=== PATIENT | female | born 1950 | race Caucasian/White ===

== ENCOUNTER 2022-07-08 14:52 | Inpatient (IN) ==
[2022-07-08] MEDS ORDERED: ceFAZolin 1,000 MG in 0.9 % Sodium Chloride Mini Bag 100 ML IVPB ONE (16:40)
[2022-07-08 16:53] LABS: Basophils # 0.1 K/mcL (0.0-0.2); Basophils % 0.8 %; Eosinophils # 0.1 K/mcL (0.0-0.6); Eosinophils % 1.8 %; Hematocrit 42.4 % (35.3-44.9); Hemoglobin 13.7 g/dL (11.5-15.4); Immature Granulocytes % 0.7 % (0-4); Lymphocytes # 1.4 K/mcL (0.6-4.6); Lymphocytes % 18.7 %; Mean Corpuscular HGB Conc 32.3 g/dL (31.6-35.5); Mean Corpuscular Hemoglobin 27.3 pg (28.0-33.3); Mean Corpuscular Volume 84.6 fL (83.0-100.0); Mean Platelet Volume 9.8 fL (9.4-12.4); Monocytes # 0.8 K/mcL (0.0-1.3); Monocytes % 10.3 %; Platelet Count 199 K/mcL (140-400); Red Blood Count 5.01 M/mcL (3.82-4.97); Red Cell Distribution Width 14.6 % (11.5-14.5); Segmented Neutrophils % 67.7 %; White Blood Count 7.4 K/mcL (4.3-11.1)
[2022-07-08 17:01] LABS: INR 1.1; Prothrombin Time 12.8 Seconds (9.4-12.1)
[2022-07-08 17:02] LABS: Alanine Aminotransferase 9 Units/L (7-52); Albumin 3.7 g/dL (3.5-5.7); Albumin/Globulin Ratio 1.4 (1.1-2.2); Alkaline Phosphatase 85 Units/L (34-104); Aspartate Amino Transferase 8 Units/L (13-39); BUN/Creatinine Ratio 12 (6-26); Bilirubin,Total 0.4 mg/dL (0.3-1.0); Blood Urea Nitrogen 10 mg/dL (8-23); Calcium 9.2 mg/dL (8.6-10.3); Carbon Dioxide 27 mEq/L (23-29); Chloride 97 mEq/L (98-107); Globulin 2.7 g/dL (2.4-3.5); Glucose 185 mg/dL (70-105); Magnesium 1.8 mg/dL (1.6-2.6); Osmolality,Calculated 274 (280-300); Potassium 4.3 mEq/L (3.5-5.1); Sodium 130 mEq/L (136-145); Total Protein 6.4 g/dL (6.4-8.9)
[2022-07-08 17:04] LABS: Activated Partial Thrombo Time 40.1 Seconds (26.0-36.0)
[2022-07-08 17:12] LABS: Troponin I < 0.03 ng/mL (< 0.04)
[2022-07-08 17:26] LABS: Thyroid Stimulating Hormone 4.686 mcIU/mL (0.340-5.600)
[2022-07-08] MEDS ORDERED: Acetaminophen 325 MG TABLET PO PRN (18:33)
[2022-07-08] MEDS ORDERED: Naloxone 0.4 MG/ML INJ IVP PRN (18:33)
[2022-07-08] MEDS ORDERED: Ondansetron 4 MG/2 ML VIAL IVP PRN (18:33)
[2022-07-08] MEDS ORDERED: Ondansetron ODT 4 MG TAB.RAPDIS PO PRN (18:36)
[2022-07-08] MEDS: Cefepime HCl 1,000 MG in 0.9 % Sodium Chloride Mini Bag 100 ML IVPB SCH (21:19)
[2022-07-08] MEDS: Apixaban 5 MG TABLET PO SCH (21:24)
[2022-07-08] MEDS: Topiramate 25 MG TABLET PO SCH (21:24)
[2022-07-08] MEDS: Gabapentin 100 MG CAPSULE PO SCH (21:24)
[2022-07-08] MEDS: Mirtazapine 15 MG TABLET PO SCH (21:25)
[2022-07-08] MEDS: Metoprolol 100 MG TABLET PO SCH (21:26)
[2022-07-09 05:07] LABS: Hematocrit 41.5 % (35.3-44.9); Hemoglobin 13.2 g/dL (11.5-15.4); Mean Corpuscular HGB Conc 31.8 g/dL (31.6-35.5); Mean Corpuscular Hemoglobin 27.3 pg (28.0-33.3); Mean Corpuscular Volume 85.9 fL (83.0-100.0); Mean Platelet Volume 9.7 fL (9.4-12.4); Platelet Count 201 K/mcL (140-400); Red Blood Count 4.83 M/mcL (3.82-4.97); Red Cell Distribution Width 14.8 % (11.5-14.5); White Blood Count 7.4 K/mcL (4.3-11.1)
[2022-07-09 05:22] LABS: BUN/Creatinine Ratio 13 (6-26); Blood Urea Nitrogen 9 mg/dL (8-23); Calcium 9.2 mg/dL (8.6-10.3); Carbon Dioxide 26 mEq/L (23-29); Chloride 103 mEq/L (98-107); Chol/HDL Ratio 3.5 (0-4.9); Cholesterol 110 mg/dL (< 200); Glucose 155 mg/dL (70-105); HDL Cholesterol 31 mg/dL (40-59); LDL Cholesterol,Calculated 48 mg/dL (< 100); Osmolality,Calculated 278 (280-300); Potassium 4.4 mEq/L (3.5-5.1); Sodium 133 mEq/L (136-145); Triglycerides 155 mg/dL (< 150)
[2022-07-09] MEDS: Cefepime HCl 1,000 MG in 0.9 % Sodium Chloride Mini Bag 100 ML IVPB SCH ×2 (06:39→17:58)
[2022-07-09] MEDS ORDERED: Vancomycin 1,500 MG/265 ML IV.SOLN IVPB SCH (09:00)
[2022-07-09] MEDS: Cholecalciferol (D-3) 1,000 UNIT (25MCG) TABLET PO SCH (09:44)
[2022-07-09] MEDS: Topiramate 25 MG TABLET PO SCH ×2 (09:44→22:14)
[2022-07-09] MEDS: Metoprolol 100 MG TABLET PO SCH ×2 (09:44→22:14)
[2022-07-09] MEDS: Furosemide 40 MG TABLET PO SCH (09:45)
[2022-07-09] MEDS: Gabapentin 100 MG CAPSULE PO SCH ×3 (09:45→22:15)
[2022-07-09] MEDS: Apixaban 5 MG TABLET PO SCH ×2 (09:45→22:15)
[2022-07-09] MEDS: Ipratropium/Albuterol Neb 3 ML IH SCH ×3 (11:30→20:40)
[2022-07-09] MEDS: *HR* HYDROcodone/Acet 5/325 mg TABLET PO PRN ×2 (11:56→22:16)
[2022-07-09] MEDS: MethylPREDNISolone 40 MG/ML VIAL IVP SCH ×2 (15:52→22:16)
[2022-07-09] MEDS ORDERED: Saline Nasal Spray 44 ML BOTTLE NS PRN (16:57)
[2022-07-09] MEDS: Doxycycline 100 MG in 0.9 % Sodium Chloride Mini Bag 100 ML IVPB SCH (17:57)
[2022-07-09] MEDS: Mirtazapine 15 MG TABLET PO SCH (22:15)
[2022-07-10] MEDS: Ipratropium/Albuterol Neb 3 ML IH SCH ×6 (00:11→19:00)
[2022-07-10] MEDS: Doxycycline 100 MG in 0.9 % Sodium Chloride Mini Bag 100 ML IVPB SCH ×2 (05:40→18:08)
[2022-07-10] MEDS: Cefepime HCl 1,000 MG in 0.9 % Sodium Chloride Mini Bag 100 ML IVPB SCH ×2 (06:43→17:27)
[2022-07-10] MEDS: *HR* HYDROcodone/Acet 5/325 mg TABLET PO PRN (06:49)
[2022-07-10] MEDS: Gabapentin 100 MG CAPSULE PO SCH ×3 (09:32→20:58)
[2022-07-10] MEDS: Apixaban 5 MG TABLET PO SCH ×2 (09:32→20:58)
[2022-07-10] MEDS: Topiramate 25 MG TABLET PO SCH ×2 (09:32→20:58)
[2022-07-10] MEDS: Furosemide 40 MG TABLET PO SCH (09:32)
[2022-07-10] MEDS: Metoprolol 100 MG TABLET PO SCH ×2 (09:32→20:58)
[2022-07-10] MEDS: Cholecalciferol (D-3) 1,000 UNIT (25MCG) TABLET PO SCH (09:32)
[2022-07-10] MEDS: MethylPREDNISolone 40 MG/ML VIAL IVP SCH ×2 (09:33→16:15)
[2022-07-10 18:45] LABS: Bilirubin,Urine Negative (Negative); Blood,Urine Negative (Negative); Clarity,Urine Clear (Clear); Color,Urine Yellow (Yellow); Glucose,Urine (UA) Normal (Normal); Ketones,Urine Negative (Negative); Leukocyte Esterase,Urine Trace (Negative); Nitrite,Urine Negative (Negative); Protein,Urine Negative (Neg-Trace); Urobilinogen,Urine Normal (Normal)
[2022-07-10 18:51] LABS: Bacteria,Urine Few per hpf (None-Few); RBC,Urine 0-3 per hpf (0-3); Squamous Epithelial Cell,Urine Few per hpf (None-Few)
[2022-07-10] MEDS: Mirtazapine 15 MG TABLET PO SCH (20:57)
[2022-07-11] MEDS: MethylPREDNISolone 40 MG/ML VIAL IVP SCH ×3 (00:18→16:28)
[2022-07-11] MEDS: Ipratropium/Albuterol Neb 3 ML IH SCH ×7 (00:18→22:44)
[2022-07-11] MEDS: Doxycycline 100 MG in 0.9 % Sodium Chloride Mini Bag 100 ML IVPB SCH (05:18)
[2022-07-11] MEDS: Albuterol 2.5 MG/3 ML NEBULIZER IH PRN ×2 (08:01→13:31)
[2022-07-11] MEDS: Cholecalciferol (D-3) 1,000 UNIT (25MCG) TABLET PO SCH (08:46)
[2022-07-11] MEDS: Topiramate 25 MG TABLET PO SCH ×2 (08:46→21:17)
[2022-07-11] MEDS: Apixaban 5 MG TABLET PO SCH ×2 (08:47→21:17)
[2022-07-11] MEDS: Metoprolol 100 MG TABLET PO SCH ×2 (08:47→21:17)
[2022-07-11] MEDS: Gabapentin 100 MG CAPSULE PO SCH ×3 (08:47→21:17)
[2022-07-11] MEDS: Furosemide 40 MG TABLET PO SCH (08:47)
[2022-07-11] MEDS ORDERED: Cefepime HCl 1,000 MG in 0.9 % Sodium Chloride Mini Bag 100 ML IVPB SCH (09:00)
[2022-07-11] MEDS ORDERED: D5% in Water 1,000 ML IVC PRN (15:46)
[2022-07-11] MEDS ORDERED: Dextrose Gel 15 GM/37.5 ML TUBE PO PRN ×2 (15:46)
[2022-07-11] MEDS ORDERED: *HR* Dextrose 50 % in Water (Syg) 50 ML SYRINGE IVP PRN (15:46)
[2022-07-11] MEDS ORDERED: Insulin LISPRO 300 UNITS/3 ML VIAL SUBQ SCH ×2 (16:30→21:15)
[2022-07-11] MEDS: Insulin LISPRO 300 UNITS/3 ML VIAL SUBQ SCH (16:31)
[2022-07-11] MEDS ORDERED: cefTRIAXone 1,000 MG in 0.9 % Sodium Chloride 10 ML IVP SCH (21:00)
[2022-07-11] MEDS: Doxycycline 100 MG CAPSULE PO SCH (21:17)
[2022-07-11] MEDS: Mirtazapine 15 MG TABLET PO SCH (21:17)
[2022-07-12] MEDS: MethylPREDNISolone 40 MG/ML VIAL IVP SCH ×2 (00:56→09:11)
[2022-07-12] MEDS: Ipratropium/Albuterol Neb 3 ML IH SCH ×2 (04:11→06:53)
[2022-07-12 07:37] LABS: Hematocrit 42.5 % (35.3-44.9); Hemoglobin 13.3 g/dL (11.5-15.4); Mean Corpuscular HGB Conc 31.3 g/dL (31.6-35.5); Mean Corpuscular Hemoglobin 27.4 pg (28.0-33.3); Mean Corpuscular Volume 87.4 fL (83.0-100.0); Mean Platelet Volume 10.1 fL (9.4-12.4); Platelet Count 214 K/mcL (140-400); Red Blood Count 4.86 M/mcL (3.82-4.97); Red Cell Distribution Width 14.6 % (11.5-14.5); White Blood Count 8.8 K/mcL (4.3-11.1)
[2022-07-12 07:51] LABS: Albumin 3.6 g/dL (3.5-5.7); Albumin/Globulin Ratio 1.2 (1.1-2.2); Bilirubin,Total 0.4 mg/dL (0.3-1.0); Calcium 9.1 mg/dL (8.6-10.3); Globulin 3.1 g/dL (2.4-3.5); Magnesium 2.1 mg/dL (1.6-2.6); Potassium 4.9 mEq/L (3.5-5.1); Total Protein 6.7 g/dL (6.4-8.9)
[2022-07-12] MEDS: Cholecalciferol (D-3) 1,000 UNIT (25MCG) TABLET PO SCH (09:11)
[2022-07-12] MEDS: Metoprolol 100 MG TABLET PO SCH (09:11)
[2022-07-12] MEDS: Apixaban 5 MG TABLET PO SCH (09:11)
[2022-07-12] MEDS: Doxycycline 100 MG CAPSULE PO SCH (09:11)
[2022-07-12] MEDS: *HR* HYDROcodone/Acet 5/325 mg TABLET PO PRN ×2 (09:11→16:04)
[2022-07-12] MEDS: Gabapentin 100 MG CAPSULE PO SCH ×2 (09:11→16:04)
[2022-07-12] MEDS: Topiramate 25 MG TABLET PO SCH (09:12)
[2022-07-12] MEDS: Furosemide 40 MG TABLET PO SCH (09:12)
[2022-07-12] MEDS: Insulin LISPRO 300 UNITS/3 ML VIAL SUBQ SCH ×3 (11:02→16:04)
[2022-07-12 11:45] VITALS: BP 134/92; PULSE 92; RESP 17; TEMP 97.3; O2SAT 96
[2022-07-12] MEDS ORDERED: MethylPREDNISolone 40 MG/ML VIAL IVP SCH (18:00)
== END 2022-07-12 16:16 | disposition other institution (70) | DRG 602 ==
LOC: INPGRE 14:52 → EMEROOGRE 14:52 → SUATTDRO 19:08 → INPGRE 19:18
PROVIDERS: ADMIT Student in an Organized Health Care Education/Training Program; ATTEND Family Medicine

== ENCOUNTER 2022-07-12 15:26 | Inpatient (IN) ==
[2022-07-12] MEDS ORDERED: Albuterol 2.5 MG/3 ML NEBULIZER IH PRN (16:52)
[2022-07-12] MEDS ORDERED: *HR* Dextrose 50 % in Water (Syg) 50 ML SYRINGE IVP PRN (17:06)
[2022-07-12] MEDS ORDERED: D5% in Water 1,000 ML IVC PRN (17:06)
[2022-07-12] MEDS ORDERED: Dextrose Gel 15 GM/37.5 ML TUBE PO PRN ×2 (17:06)
[2022-07-12] MEDS ORDERED: Ondansetron ODT 4 MG TAB.RAPDIS PO PRN (17:07)
[2022-07-12] MEDS ORDERED: Saline Nasal Spray 44 ML BOTTLE NS PRN (17:10)
[2022-07-12] MEDS ORDERED: Sennosides/Docusate Sodium TABLET PO SCH (21:00)
[2022-07-12] MEDS: Doxycycline 100 MG CAPSULE PO SCH (21:57)
[2022-07-12] MEDS: Apixaban 5 MG TABLET PO SCH (21:57)
[2022-07-12] MEDS: *HR* HYDROcodone/Acet 5/325 mg TABLET PO PRN (21:57)
[2022-07-12] MEDS: Mirtazapine 15 MG TABLET PO SCH (21:58)
[2022-07-12] MEDS: Topiramate 25 MG TABLET PO SCH (21:58)
[2022-07-12] MEDS: Gabapentin 100 MG CAPSULE PO SCH (21:59)
[2022-07-12] MEDS: MethylPREDNISolone 40 MG/ML VIAL IVP SCH (22:00)
[2022-07-12] MEDS: Insulin LISPRO 300 UNITS/3 ML VIAL SUBQ SCH (22:00)
[2022-07-13 04:33] LABS: Hemoglobin 12.7 g/dL (11.5-15.4); Mean Corpuscular Hemoglobin 27.3 pg (28.0-33.3); Mean Platelet Volume 9.4 fL (9.4-12.4); Platelet Count 187 K/mcL (140-400); Red Blood Count 4.66 M/mcL (3.82-4.97); Red Cell Distribution Width 14.6 % (11.5-14.5); White Blood Count 7.8 K/mcL (4.3-11.1)
[2022-07-13 04:47] LABS: Calcium 8.9 mg/dL (8.6-10.3); Potassium 4.3 mEq/L (3.5-5.1)
[2022-07-13] MEDS: *HR* HYDROcodone/Acet 5/325 mg TABLET PO PRN ×2 (06:03→16:06)
[2022-07-13] MEDS ORDERED: Cholecalciferol (D-3) 1,000 UNIT (25MCG) TABLET PO SCH (09:00)
[2022-07-13] MEDS: Doxycycline 100 MG CAPSULE PO SCH ×2 (09:59→21:20)
[2022-07-13] MEDS: Insulin LISPRO 300 UNITS/3 ML VIAL SUBQ SCH ×4 (09:59→19:21)
[2022-07-13] MEDS: Furosemide 40 MG TABLET PO SCH (09:59)
[2022-07-13] MEDS: Cholecalciferol (D-3) 1,000 UNIT (25MCG) TABLET PO SCH (09:59)
[2022-07-13] MEDS: Topiramate 25 MG TABLET PO SCH ×2 (09:59→21:20)
[2022-07-13] MEDS: *HR* Metformin 500 MG TABLET PO SCH (09:59)
[2022-07-13] MEDS: Gabapentin 100 MG CAPSULE PO SCH ×3 (10:00→21:20)
[2022-07-13] MEDS: Apixaban 5 MG TABLET PO SCH ×2 (10:00→21:20)
[2022-07-13] MEDS: MethylPREDNISolone 40 MG/ML VIAL IVP SCH ×2 (10:00→21:19)
[2022-07-13] MEDS: Patient Taking Own Medication 1 EACH PO SCH (10:21)
[2022-07-13] MEDS: polyethylene glycoL 3350 17 GM POWD.PACK PO SCH (12:49)
[2022-07-13] MEDS: Sennosides/Docusate Sodium TABLET PO SCH (21:21)
[2022-07-13] MEDS: Mirtazapine 15 MG TABLET PO SCH (21:21)
[2022-07-14 07:59] VITALS: BP 135/90; PULSE 85; RESP 16; TEMP 97.9; O2SAT 99
[2022-07-14] MEDS: Gabapentin 100 MG CAPSULE PO SCH (08:47)
[2022-07-14] MEDS: Doxycycline 100 MG CAPSULE PO SCH (08:47)
[2022-07-14] MEDS: Topiramate 25 MG TABLET PO SCH (08:47)
[2022-07-14] MEDS: Sennosides/Docusate Sodium TABLET PO SCH (08:47)
[2022-07-14] MEDS: *HR* Metformin 500 MG TABLET PO SCH (08:47)
[2022-07-14] MEDS: Cholecalciferol (D-3) 1,000 UNIT (25MCG) TABLET PO SCH (08:47)
[2022-07-14] MEDS: Insulin LISPRO 300 UNITS/3 ML VIAL SUBQ SCH ×2 (08:48→12:12)
[2022-07-14] MEDS: Furosemide 40 MG TABLET PO SCH (08:48)
[2022-07-14] MEDS: MethylPREDNISolone 40 MG/ML VIAL IVP SCH (08:48)
[2022-07-14] MEDS: polyethylene glycoL 3350 17 GM POWD.PACK PO SCH (09:06)
[2022-07-14] MEDS: Patient Taking Own Medication 1 EACH PO SCH (09:07)
[2022-07-14] MEDS: Apixaban 5 MG TABLET PO SCH (09:09)
== END 2022-07-14 12:59 | disposition home or self-care (01) | DRG 193 ==
LOC: INPGRE 16:20
PROVIDERS: ADMIT Family Medicine; ATTEND Family Medicine